=== PATIENT | female | born 1950 | race African-American/Black ===

== ENCOUNTER 2021-10-25 10:34 | Outpatient (CLI) | payer MEDICARE ==
--- NOTE | 2021-10-25 12:49 | Cat Scan Report ---
CT ABDOMEN AND PELVIS WITHOUT CONTRAST INDICATION / CLINICAL INFORMATION: R31.29 HEMATURIA. TECHNIQUE: Axial CT images were obtained through the abdomen and pelvis without IV contrast. Sagittal and huffman l reformatted images. All CT scans at this location are performed using CT dose reduction for ALARA b y means of automated exposure control. COMPARISON: 11/02/2020 FINDINGS: LOWER CHEST: No significant abnormality. LIVER: No significant abnormality. GALLBLADDER: No significant abnormality. BILE DUCTS: No significant abnormality. PANCREAS: No significant abnormality. SPLEEN: No significant abnormality. ADRENALS: No significant abnormality. RIGHT KIDNEY and URETER: I question if there are 1 or 2 punctate calyceal stones in the right kidney. The most convincing stone is on axial image 54, series 2. 1 cm right renal cyst is unchanged. The ri ght ureter is normal course and caliber. LEFT KIDNEY and URETER: No significant abnormality. STOMACH and SMALL BOWEL: No significant abnormality. COLON: No significant abnormality. APPENDIX: No significant abnormality. PERITONEUM: No free fluid. No free air. No fluid collection. LYMPH NODES: No significant adenopathy. AORTA and ARTERIES: No significant abnormality. IVC and VEINS: No significant abnormality. URINARY BLADDER: No significant abnormality. REPRODUCTIVE ORGANS: No significant abnormality. ADDITIONAL FINDINGS: None. SKELETAL SYSTEM: Mild thoracolumbar spondylosis. IMPRESSION: Minimal nonobstructing right nephrolithiasis is suspected. No hydronephrosis. Signer Name: Matt Damian Jr, MD Signed: 10/25/2021 12:45 PM Workstation Name: [id number]
== END 2021-10-25 10:35 | disposition home or self-care (01) ==
LOC: CT 10:34
PROVIDERS: ATTEND Urology
DX: N20.0 Calculus of kidney (principal); N28.1 Cyst of kidney, acquired; R31.29 Other microscopic hematuria; M47.815 Spondylosis without myelopathy or radiculopathy, thoracolumbar region
CPT/HCPCS: 74176